=== PATIENT | male | born 1975 | race Caucasian/White ===

== ENCOUNTER 2022-08-07 08:14 | Emergency (ER) | payer MEDICARE, BC ==
[2022-08-07] MEDS ORDERED: Sodium Chloride 0.9% 10 ML Syringe FLUSH PRN (08:18)
[2022-08-07] MEDS ORDERED: Ondansetron 4 MG/2 ML SDV IVPUSH PRN (08:18)
[2022-08-07] MEDS ORDERED: Sodium Chloride 0.9% 1,000 ML IV ONE ×2 (08:18→09:21)
[2022-08-07] MEDS ORDERED: HYDROmorphone 0.5 MG/0.5 ML Syringe IVPUSH ONE (08:22)
[2022-08-07 08:56] LABS: CHLORIDE,CL 103 mEq/L (98-106); SODIUM,NA 138 mEq/L (136-145)
[2022-08-07 09:20] LABS: ESTIMATED GFR 67 mL/min (>=60)
[2022-08-07] MEDS ORDERED: Ketorolac 30 MG/ML SDV IVPUSH ONE (09:21)
== END 2022-08-07 11:30 | disposition home or self-care (01) ==
LOC: CC.ED 08:14
DX: N20.0 Calculus of kidney (principal); Z79.899 Other long term (current) drug therapy
CPT/HCPCS: 36415; 74176; 80053; 81001; 85025; 86140; 96361; 96374; 96375; 99284; 99284-25; J1170; J1885; J2405; J7030

== ENCOUNTER 2022-08-10 21:20 | Observation (INO) | payer MEDICARE, BC ==
[2022-08-10] MEDS ORDERED: Sodium Chloride 0.9% 1,000 ML IV ONE (22:41)
[2022-08-10] MEDS ORDERED: Acetaminophen 325 MG Tab PO PRN (22:42)
[2022-08-10] MEDS ORDERED: Calcium Carbonate 500 MG Tab.Chew PO PRN (22:42)
[2022-08-10] MEDS ORDERED: Ondansetron 4 MG/2 ML SDV IVPUSH PRN (22:45)
[2022-08-11] MEDS ORDERED: Sodium Chloride 0.9% 1,000 ML IV ONE (00:56)
[2022-08-11 03:47] LABS: AMPHETAMINES,URINE NEGATIVE (NEGATIVE); BARBITURATES,URINE NEGATIVE (NEGATIVE); BENZODIAZEPINE,URINE POSITIVE (NEGATIVE); MDMA (ECSTASY), URINE NEGATIVE (NEGATIVE); METHADONE,URINE NEGATIVE (NEGATIVE); METHAMPHETAMINES,URINE NEGATIVE (NEGATIVE); OPIATES,URINE NEGATIVE (NEGATIVE); OXYCODONE,URINE NEGATIVE (NEGATIVE); PHENCYCLIDINE,URINE NEGATIVE (NEGATIVE); TCA,URINE NEGATIVE (NEGATIVE)
== END 2022-08-11 03:10 | disposition left against medical advice (07) ==
LOC: CC.ED 22:30 → CC.MS 22:35 → CC.ED 22:40 → CC.MS 22:40 → UNDOADMOB 22:40 → CC.ED 23:11 → UNDODISOB 08-11 03:10
PROVIDERS: ADMIT Nurse Practitioner Family; ATTEND Nurse Practitioner Family
DX: F10.929 Alcohol use, unspecified with intoxication, unspecified (principal); R40.4 Transient alteration of awareness; Z89.511 Acquired absence of right leg below knee
CPT/HCPCS: 36415; 71045; 80305-QW; 80307; 81001; 83605; 83735; 85025; 93005; 96360; 96361; G0378; J7030

== ENCOUNTER 2022-08-12 05:03 | Emergency (ER) | payer MEDICARE, BC ==
[~2022-08-12 05:03] MED LIST: Ketorolac 30 MG/ML SDV IVPUSH ONE; Tamsulosin 0.4 MG Cap.ER PO ONE; fentaNYL 50 MCG/ML SDV IVPUSH ONE
[2022-08-12] MEDS: Sodium Chloride 0.9% 1,000 ML IV ONE ×2 (05:03→06:10)
[2022-08-12] MEDS ORDERED: Sodium Chloride 0.9% 1,000 ML IV ONE ×2 (05:27→08:35)
[2022-08-12] MEDS ORDERED: Morphine 4 MG/ML VIAL IVPUSH ONE ×2 (06:50→08:50)
[2022-08-12] MEDS ORDERED: Take Home: Acetaminophen/HYDROcodone 325-5 MG, 2 Tab Pack PO ONE (10:53)
== END 2022-08-12 11:33 ==
LOC: CC.ED 05:03
DX: N20.2 Calculus of kidney with calculus of ureter (principal)
CPT/HCPCS: 36415; 74176; 80053; 81001; 85025; 96361; 96374; 96375; 96376; 99285; A9270; J1885; J2270; J3010; J7030